=== PATIENT | female | born 1955 ===

== ENCOUNTER 2021-02-06 14:39 | Outpatient (CLI) | payer OTHER | END 2021-02-06 14:50 | disposition home or self-care (01) | LOC: SONOGRAMA 14:39 | PROVIDERS: ATTEND Podiatrist Foot Surgery | DX: G57.61 Lesion of plantar nerve, right lower limb (principal); G57.62 Lesion of plantar nerve, left lower limb ==

== ENCOUNTER 2021-11-09 08:20 | Outpatient (CLI) | payer OTHER | END 2021-11-09 08:28 | disposition home or self-care (01) | LOC: RAD 08:20 | DX: S93.402A Sprain of unspecified ligament of left ankle, initial encounter (principal) ==

== ENCOUNTER 2021-12-28 08:38 | Outpatient (CLI) | payer OTHER | END 2021-12-28 08:47 | disposition home or self-care (01) | LOC: RAD 08:38 | DX: M99.01 Segmental and somatic dysfunction of cervical region (principal); M99.02 Segmental and somatic dysfunction of thoracic region; M99.03 Segmental and somatic dysfunction of lumbar region; M54.51 Vertebrogenic low back pain ==

== ENCOUNTER 2022-11-01 08:25 | Outpatient (CLI) | payer OTHER | END 2022-11-01 08:36 | disposition home or self-care (01) | LOC: RAD 08:25 | DX: M99.01 Segmental and somatic dysfunction of cervical region (principal); M99.02 Segmental and somatic dysfunction of thoracic region; M99.03 Segmental and somatic dysfunction of lumbar region; M99.04 Segmental and somatic dysfunction of sacral region; M99.05 Segmental and somatic dysfunction of pelvic region ==

== ENCOUNTER 2025-03-01 09:53 | Outpatient (CLI) | payer OTHER | END 2025-03-01 10:00 | disposition home or self-care (01) | LOC: RAD 09:53 | PROVIDERS: ATTEND Orthopaedic Surgery | DX: M79.641 Pain in right hand (principal) ==

== ENCOUNTER 2025-04-04 08:53 | Outpatient (CLI) | payer OTHER | END 2025-04-04 09:00 | disposition home or self-care (01) | LOC: SONOGRAMA 08:53 | PROVIDERS: ATTEND Internal Medicine Gastroenterology | DX: E03.8 Other specified hypothyroidism (principal) ==

== ENCOUNTER 2025-04-05 08:22 | Outpatient (CLI) | payer OTHER | END 2025-04-05 08:30 | disposition home or self-care (01) | LOC: SONOGRAMA 08:22 | PROVIDERS: ATTEND Internal Medicine Gastroenterology | DX: R16.0 Hepatomegaly, not elsewhere classified (principal) ==

== ENCOUNTER 2025-04-14 09:52 | Outpatient (CLI) | payer OTHER | END 2025-04-14 10:00 | disposition home or self-care (01) | LOC: NUCLEAR 09:52 | PROVIDERS: ATTEND Orthopaedic Surgery | DX: M81.0 Age-related osteoporosis without current pathological fracture (principal) ==

== ENCOUNTER 2025-05-02 15:05 | Outpatient (CLI) | payer OTHER | END 2025-05-02 15:07 | disposition home or self-care (01) | LOC: TOM 15:05 | PROVIDERS: ATTEND Student in an Organized Health Care Education/Training Program | DX: R10.9 Unspecified abdominal pain (principal); D73.9 Disease of spleen, unspecified; N60.11 Diffuse cystic mastopathy of right breast; N60.12 Diffuse cystic mastopathy of left breast ==